=== PATIENT | male | born 1990 | race American Indian/Alaskan Native ===

== ENCOUNTER 2016-11-07 09:32 | Emergency (ER) | payer SELFPAY ==
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
[2016-11-07 14:54] VITALS: BP 113/64
[2016-11-07] MEDS ORDERED: ZOFRAN ODT PO ONE (15:22)
[2016-11-07] MEDS ORDERED: NORCO 5/325 PO ONE (15:22)
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
== END 2016-11-07 16:11 | disposition home or self-care (01) ==
LOC: ED 09:32
DX: S05.12XA Contusion of eyeball and orbital tissues, left eye, initial encounter (principal); F17.200 Nicotine dependence, unspecified, uncomplicated; Y04.0XXA Assault by unarmed brawl or fight, initial encounter; Y93.89 Activity, other specified; Y99.8 Other external cause status; Y92.89 Other specified places as the place of occurrence of the external cause
CPT/HCPCS: 70486; Q0162